=== PATIENT | male | born 1955 | race Caucasian/White ===

== ENCOUNTER 2018-07-17 09:28 | Outpatient (CLI) | payer OTHER ==
[2018-07-17] MEDS ORDERED: ZIAC 5-6.25 MG1 EACH PO (10:04)
[2018-07-17] MEDS ORDERED: DETROL LA4 MG PO (10:06)
[2018-07-17] MEDS ORDERED: CIALIS5 MG PO (13:29)
== END 2018-07-17 10:28 | disposition home or self-care (01) ==
LOC: LAB 09:28
DX: R10.9 Unspecified abdominal pain (principal); I10 Essential (primary) hypertension

== ENCOUNTER 2018-08-08 09:48 | Day surgery (SDC) | payer OTHER ==
[~2018-08-08 09:48] MED LIST: CIALIS5 MG PO; DETROL LA4 MG PO; ZIAC 5-6.25 MG1 EACH PO
[2018-08-08] MEDS ORDERED: ULTRACET PO (12:51)
[2018-08-08] MEDS ORDERED: TYLENOL EXTRA500 MG PO ×2 (13:05→13:24)
[2018-08-08] MEDS ORDERED: MIRALAX17 GM PO (13:05)
[2018-08-08] MEDS ORDERED: ZOFRAN4 MG PO (13:05)
[2018-08-08] MEDS ORDERED: NEURONTIN300 MG PO (13:24)
[2018-08-08] MEDS ORDERED: CIPRO500 MG PO (13:30)
== END 2018-08-08 17:10 | disposition home or self-care (01) ==
LOC: CIR.AMB 09:48
DX: K40.90 Unilateral inguinal hernia, without obstruction or gangrene, not specified as recurrent (principal)

== ENCOUNTER 2018-12-19 05:25 | Day surgery (SDC) | payer OTHER ==
[~2018-12-19 05:25] MED LIST changes: +CIPRO500 MG PO; +MIRALAX17 GM PO; +NEURONTIN300 MG PO; +TYLENOL EXTRA500 MG PO; +ULTRACET PO; +ZOFRAN4 MG PO
[2018-12-19] MEDS ORDERED: TYLENOL EXTRA500 MG PO (09:18)
[2018-12-19] MEDS ORDERED: NEURONTIN300 MG PO (09:18)
[2018-12-19] MEDS ORDERED: TRAMADOL HCL50 MG PO (09:18)
[2018-12-19] MEDS ORDERED: MIRALAX17 GM PO (09:18)
== END 2018-12-19 15:45 | disposition home or self-care (01) ==
LOC: CIR.AMB 05:25
DX: K40.90 Unilateral inguinal hernia, without obstruction or gangrene, not specified as recurrent (principal)